=== PATIENT | female | born 1995 | race Caucasian/White ===

== ENCOUNTER → 2020-02-09 | Outpatient (CLI) | payer OTHER ==
[2020-02-09 12:30] VITALS: BP 135/72
--- NOTE | 2020-02-09 12:30 | ER [facility] ASSESSMENT REPORT ---
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 - Symptoms Subjective Fever([place] feverish): No Chills: No Muscule Aches: Yes Runny Nose: No Sore Throat: Yes Cough (New or worsening chronic cough): No Shortness of breath: No Nausea or Vomiting: No Headache: Yes Abdominal Pain: No Diarrhea(3 or more loose stools in last 24 hours): No - Do you have any of the following Chronic lung disease: Asthma or emphysema or COPD: No Cystic Fibrosis: No Diabetes: No High Blood Pressure: No Cardiovascular Disease: No Chronic Kidney Disease: No Chronic Liver Disease: No Chronic blood disorder like Sickle Cell Disease: Yes Weak immune system due to disease or medication: No Neurologic condition that limits movement: No Developmental delay - Moderate to Severe: No Recent (within past 2 weeks) or current : No Morbid Obesity (>100 pounds over ideal weight): No - Objective Temperature: 97.9 F Pulse Rate: 78 Respiratory Rate: 18 Blood Pressure: 135/72 O2 Sat by Pulse Oximetry: 97 Objective: Given above, testing performed: flu, strep, covid General - General Stated Complaint: sore throat Time Seen by Provider: 02/09/20 12:15 Mode of Arrival: Ambulatory - [facility] Notes: 24-year-old female presents to [facility] clinic for COVID-19 testing. 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 She also reports she was recently notified that a friend she was with approximately 3 weeks ago tested positive within the past 7 days. Patient reports onset of symptoms 02/08/2020. Currently experiencing muscle aches, sore throat, and headache. Denies any fever, chills, runny nose, cough, shortness of breath, nausea or vomiting, abdominal pain or diarrhea. - Related Data Allergies/Adverse Reactions: Sulfa (Sulfonamide Antibiotics) Allergy (Verified 01/14/15 12:38) Hives Past Medical History - General Information source: Patient - Social History Smoking Status: Never Smoker Family History: Reviewed & Not Pertinent - Past Medical History Cardiac Medical History: Reports: None Pulmonary Medical History: Reports: Hx Pneumonia EENT Medical History: Reports: None Neurological Medical History: Reports: None Endocrine Medical History: Reports: None Renal/ Medical History: Reports: None Malignancy Medical History: Reports: None GI Medical History: Reports: None Musculoskeletal Medical History: Reports None Skin Medical History: Reports None Psychiatric Medical History: Reports: None Traumatic Medical History: Reports: None Infectious Medical History: Reports: None Past Surgical History: Reports: Hx Cholecystectomy, Hx Orthopedic Surgery - R knee Physical Exam - General General appearance: Appears well, Alert In distress: None Notes: PHYSICAL EXAMINATION: GENERAL: Well-appearing and in no acute distress. HEAD: Atraumatic, normocephalic. EYES: sclera anicteric, conjunctiva are normal. ENT: nares patent. Moist mucous membranes. NECK: Normal range of motion, supple without lymphadenopathy. LUNGS: No increased work of breathing. Lung sounds CTAB and equal. No wheezes rales or rhonchi. HEART: Regular rate and rhythm without murmurs. ABDOMEN: Soft, nontender, normal bowel sounds, no guarding. EXTREMITIES: Normal range of motion, no pitting edema. No cyanosis. NEUROLOGICAL: A&O x 3. Normal speech. PSYCH: Normal mood, normal affect. SKIN: Warm, Dry, normal turgor, no rashes or lesions noted Patient Education/Counseling Counseling/Education: Patient presents with symptoms associated with possible Covid 19 infection. Patient does not have emergency worrying symptoms such as difficulty breathing, shortness of breath, chest pain, pressure, confusion or cyanosis. Patient appears suitable for discharge as vital signs are stable and patient is nontoxic in appearance. Good return precautions have been discussed with patient, patient verbalized understanding and is agreeable with discharge plan of care at this time. Guidance for worsening S/SX: As a person under investigation for Covid 19, the [place] department of Health and Human Services, division of public health advises you to adhere to the following guidance until your test results are reported to you. If your test result is positive, you will receive additional information from your provider and your local health department at that time. Remain at home until you are cleared by the health provider or public health authorities. Keep a log of visitors to your home, notify any visitors to your home of your isolation status. If you plan to move to a new address or leave the [facility], notify the local health department in your County. Call your doctor or seek care if you have an urgent medical need. Before seeking medical care, call ahead to get instructions from the provider before arriving at the medical office clinic or hospital. Notify them that you are being tested for the virus that causes Covid 19 so that arrangements can be made, as necessary, to prevent transmission to others in the healthcare setting. Next, notify the local health department in your county. If a medical emergency arises and you need to call 911, inform the first responders that you are being tested for the virus that causes Covid 19. Next, notify the local health department in your county. [facility] Discharge - Discharge Clinical Impression: Encounter for screening laboratory testing for COVID-19 virus Condition: Good Disposition: Home; Selfcare
[2020-02-09 13:05] LABS: A TYPE INFLUENZA AG NEGATIVE (NEGATIVE); B INFLUENZA AG NEGATIVE (NEGATIVE)
== END ==
LOC: RDC 11:46
PROVIDERS: ATTEND Registered Nurse
DX: Z20.828 Contact with and (suspected) exposure to other viral communicable diseases (principal); J02.9 Acute pharyngitis, unspecified; M79.10 Myalgia, unspecified site; R51 Headache; Z88.1 Allergy status to other antibiotic agents
CPT/HCPCS: 87070; 87880; 87635; 87077; 87804; C9803; 99201; 99211

== ENCOUNTER → 2020-04-03 | Outpatient (CLI) | payer OTHER ==
--- NOTE | 2020-04-03 10:22 | ER [facility] ASSESSMENT REPORT ---
Intake - In the Last 14 days Have you traveled outside [place]?: No Have you been in close contact with someone CONFIRMED: Yes Worked in Healthcare?: Yes - Symptoms Subjective Fever([place] feverish): Yes Chills: No Muscule Aches: Yes Runny Nose: No Sore Throat: Yes Cough (New or worsening chronic cough): No Shortness of breath: No Nausea or Vomiting: No Headache: Yes Abdominal Pain: No Diarrhea(3 or more loose stools in last 24 hours): No - Do you have any of the following Chronic lung disease: Asthma or emphysema or COPD: No Cystic Fibrosis: No Diabetes: No High Blood Pressure: No Cardiovascular Disease: No Chronic Kidney Disease: No Chronic Liver Disease: No Chronic blood disorder like Sickle Cell Disease: No Weak immune system due to disease or medication: No Neurologic condition that limits movement: Yes Developmental delay - Moderate to Severe: No Recent (within past 2 weeks) or current : No Morbid Obesity (>100 pounds over ideal weight): No - Objective Temperature: 98.7 F Pulse Rate: 91 Respiratory Rate: 18 Blood Pressure: 124/77 O2 Sat by Pulse Oximetry: 95 Objective: Given above, testing performed: If Testing Performed: Test Specimen Type Sent to General - General Information source: Patient Notes: Patient presents to the [facility] for screening for coronavirus. Patient's had symptoms for the past 2 days including fever, body aches, sore throat and headache. - Related Data Allergies/Adverse Reactions: Sulfa (Sulfonamide Antibiotics) Allergy (Verified 01/14/15 12:38) Hives Past Medical History - General Information source: Patient - Social History Smoking Status: Never Smoker Family History: Reviewed & Not Pertinent - Medical History Medical History: Other - Factor V Leiden Pulmonary Medical History: Reports: Hx Pneumonia Past Surgical History: Reports: Hx Cholecystectomy, Hx Orthopedic Surgery - R knee Physical Exam - Notes Notes: The patient was evaluated during the global Covid 19 pandemic, and that diagnosis was suspected/considered upon their initial presentation. Their evaluation, treatment and testing was consistent with current guidelines for patients who present with complaints or symptoms that may be related to Covid 19. Full physical exam could not be performed due to covid 19 isolation protocols. Constitutional: Nontoxic appearance, no acute distress Eyes: Nonicteric, extraocular movements intact, sclera clear ENT: Posterior pharynx erythematous, no tonsillar exudates Cardiovascular: Heart rate and rhythm regular, no JVD Respiratory: Breath sounds clear bilaterally, nonlabored breathing, no use of accessory muscles, no tachypnea Gastrointestinal: Abdomen not distended Muculoskeletal: Moves all extremities well Skin: Normal color Neuro: Awake alert oriented, normal speech Psych: Normal mood and affect Diagnostic Results Laboratory Results: Patient presents with symptoms worrisome for possible Covid 19. Patient does not have emergency worrying symptoms such as difficulty breathing, shortness of breath, chest pain, pressure, confusion or cyanosis. Patient appears suitable for discharge as they are not of an advanced age, do not have any chronic medical conditions such as diabetes, CAD, immune deficiency, chronic lung disease or chronic kidney disease. Patient's vital signs are stable and patient is nontoxic in appearance. Good return precautions have been discussed with patient, patient verbalized understanding and is agreeable with discharge plan of care at this time. Patient Education/Counseling Counseling/Education: Patient was provided with discharge information including: As a person under investigation for Covid 19, the [place] department of Health and Human Services, division of public health advises you to adhere to the following guidance until your test results are reported to you. If your test result is positive, you will receive additional information from your provider and your local health department at that time. Remain at home until you are cleared by the health provider or public health authorities. Keep a log of visitors to your home, notify any visitors to your home of your isolation status. If you plan to move to a new address or leave the formerly [facility], notify the local health department in your [facility]. Call your doctor or seek care if you have an urgent medical need. Before seeki ng medical care, call ahead to get instructions from the provider before arriving at the medical office clinic or hospital. Notify them that you are being tested for the virus that causes Covid 19 so that arrangements can be made, as necessary, to prevent transmission to others in the healthcare setting. Next, notify the local health department in your county. If a medical emergency arises and you need to call 911, inform the first responders that you are being tested for the virus that causes Covid 19. Next, notify the local health department in your county. [facility] Discharge - Discharge Condition: Stable Disposition: Home; Selfcare
[2020-04-03 10:29] VITALS: BP 124/77
[2020-04-03 11:25] LABS: A TYPE INFLUENZA AG NEGATIVE (NEGATIVE); B INFLUENZA AG NEGATIVE (NEGATIVE)
== END ==
LOC: RDC 10:04
PROVIDERS: ATTEND Nurse Practitioner Family
DX: J02.0 Streptococcal pharyngitis (principal); B95.0 Streptococcus, group A, as the cause of diseases classified elsewhere; Z20.828 Contact with and (suspected) exposure to other viral communicable diseases; R50.9 Fever, unspecified; D68.51 Activated protein C resistance; M79.10 Myalgia, unspecified site; R51.9 Headache, unspecified; Z88.1 Allergy status to other antibiotic agents
CPT/HCPCS: 87880; 87635; 87804; 99211 ×2; C9803

== ENCOUNTER → 2020-06-06 | Outpatient (CLI) | payer OTHER ==
[~2020-06-06] MED LIST: COVID-19 VACCINE (PFIZER)/PF 30 MCG/0.3 ML VIAL IM ONE; EPINEPHRINE INJ/PF 1 MG/1 ML AMPULE IM PRN
--- OUTSIDE RECORDS SUMMARY | 2020-06-06 14:31 | XMS REPORT ---
:1995 [facility] Address [facility] [address] [place] [address] Care Team Providers Name Role Phone Ary Trejo Primary Care Physician Unavailable Sander BAKER Attending Clinician Unavailable Kelsy Osorio CMA Unavailable Thanh Trejo DO Unavailable Allergies, Adverse Reactions, Alerts Allergy Allergy Status Severity Reaction(s) Onset Inactive Treating C omments Name Type Date Date Clinician Sulfa Drugs Sulfa Active Drugs Sulfacetami Sulfacetam Inactive de juan m *CHEMICALS* *CHEMICALS * Medications Ordered Filled Start Stop Current Ordering Indication Dosage Frequency Signature Comments Components Medication Medication Date Date Medication? Clinician (SIG) Name Name medroxyPROG 2020- No Ary Law 1{cc} medroxyP RO Site: [facility] 05-30 Neil GESTERone Delt oid, Acetate 150 00:00: 00:00 DO Acetate (R) MG/ML 00 :00 150 MG/ML Intramuscul Intramuscu ar lar Suspension Suspension 1 (one) cc Ordered: 1 Ary Trejo DO Start : 1 End : 1Administe red Comments: Site: Deltoid, (R) Nitrofurant 2019-05 No Josephine Tierney 1{Capsu Q0.5D Nitrofura n oin 07-08 Devon VÁZQUEZ le} toin Macrocrysta 00:00: Macrocryst l 100 MG 00 al 100 MG Oral Oral Capsule Capsule 1 (one) Capsule two times daily for 5 days Quantity: 10 {Capsule} Refills: 0 Ordered: 0 Josephine Osorio CMA Start : 0Active buPROPion 2019-05 Yes buPROPion HCl ER (XL) 1-19 HCl ER 300 MG Oral 00:00: (XL) 300 Tablet 00 MG Oral Extended Tablet Release 24 Extended Hour Release 24 Hour Quantity: 90 Refills: 0 Start : 0Active buPROPion 2019-05 No Ary A 1{Table QD buPROPio n HCl ER (XL) 1- Neil t} HCl ER 300 MG Oral 00:00: DO (XL) 300 Tablet 00 MG Oral Extended Tablet Release 24 Extended Hour Release 24 Hour 1 (one) Tablet daily for 90 days Quantity: 90 {Tablet} Refills: 1 Ordered: 0 Neil DO, Ary A Start : 0Active buPROPion 2019-05 No 1{Table QD buPROPion HCl ER (XL) 1- t_ER_24 HCl ER 300 MG Oral 00:00: HR} (XL) 300 Tablet 00 MG Oral Extended Tablet Release 24 Extended Hour Release 24 Hour 1 (one) daily (300 MG) Start : 0Active medroxyPROG 2019-05 2020- No Ary A 1{cc} medroxyP RO Site: [facility] 03-12 Neil GESTERone Delt oid, Acetate 150 00:00: 00:00 DO Acetate (R) MG/ML 00 :00 150 MG/ML Intramuscul Intramuscu ar lar Suspension Suspension 1 (one) cc Ordered: 0 Neil DO, Ary A Start : 0 End : 0Administe red Comments: Site: Deltoid, (R) buPROPion 2019-05 No Ary A 1{Table buPROPio n HCl ER (XL) 0- Neil t} HCl ER 150 MG Oral 00:00: DO (XL) 150 Tablet 00 MG Oral Extended Tablet Release 24 Extended Hour Release 24 Hour 1 (one) Tablet daily x 4 days then two daily in same dose for 30 days Quantity: 60 {Tablet} Refills: 0 Ordered: 0 Neil DO, Ary A Start : 0Active Nitrofurant 2020- No Josephine Tierney 1{Capsu Nitrofura n oin 01-18 Devon [employer]IS[employer] FILTERER le} toin Macrocrysta 00:00: 00:00 Macrocryst l 50 MG 00 :00 al 50 MG Oral Oral Capsule Capsule 1 (one) Capsule x 1 after intercours e for 30 days Quantity: 30 {Capsule} Refills: 0 Ordered: 19-Jan-2020 Devon CMA, Josephine C Start : 19-Jan-2020 End : 18-Feb-2020 Inactive Nitrofurant 2020-0 2020- No 1{Capsu Nitrofuran oin 01-18 le} toin Macrocrysta 00:00: 00:00 Macrocryst l 50 MG 00 :00 al 50 MG Oral Oral Capsule Capsule 1 (one) x 1 after intercours e (50 MG) Start : 19-Jan-2020 End : 18-Feb-2020 Inactive Depo-Cryptologic Technician 2020-0 No 1{Suspe Depo-Prove a 150 MG/ML 12-21 nsion} ra 150 Intramuscul 00:00: MG/ML ar 00 Intramuscu Suspension lar Suspension 1 (one) q 3 mo (150 MG/ML) Start : 22-Dec-2019 Active Mupirocin 2 2020-0 No 1{Ointm Mupirocin % External 8 ent} 2 % Ointment 00:00: External 00 Ointment 1 (one) bid (2 %) Start : 22-Dec-2019 Active medroxyPROG 2020-0 Yes medroxyPRO [facility] 8- GESTERone Acetate 150 00:00: Acetate MG/ML 00 150 MG/ML Intramuscul Intramuscu ar lar Suspension Suspension Quantity: 1 Refills: 0 Start : 22-Dec-2019 Active Depo-Cryptologic Technician 2020-0 No Burton C 1{Ashleigh Depo-Prov e a 150 MG/ML 8 Devon [employer] liter} ra 150 Intramuscul 00:00: MG/ML ar 00 Intramuscu Suspension lar Suspension 1 (one) Milliliter q 3 mo for 90 days Quantity: 1 {Millilite r} Refills: 3 Ordered: 22-Dec-2019 Devon WHISKEY FILTERER, Josephine C Start : 22-Dec-2019 Active Mupirocin 2 2020-0 No Josephine C 1{Appli Mupirocin % External 8 Devon [employer] cation} 2 % Ointment 00:00: External 00 Ointment 1 (one) Applicatio n bid for 30 days Quantity: 1 {Tube} Refills: 0 Ordered: 22-Dec-2019 Josephine Osorio CMA Start : 22-Dec-2019 Active Depo-Cryptologic Technician No Depo-Prove a 100 MG/ML ra 100 Injection MG/ML Solution Injection Solution as directed (100 MG/ML) Active Problems Condition Condition Condition Status Onset Resolution Last Treatin g Comments Name Details Category Date Date Treatment Clinician Date Problem No Known Condition Inactiv 2020-04-04 Devon, Impairments e 8-06 15:01:10 Josephine Tierney 00:00: 00 Multiple Multiple Problem Inactiv Neil, thyroid thyroid e Ary A nodules nodules Recurrent Recurrent Problem Inactiv Neil, tonsillitis tonsillitis e Ary A Dysuria Dysuria Problem Inactiv tate Osorio Anxiety Anxiety Problem Inactiv tate Osorio Asthma Asthma Problem Inactiv tate Osorio Factor 5 Factor 5 Problem Inactiv Sandy Osorio Leiden e Josephine Tierney mutation, mutation, heterozygou heterozygou s s Encounter Encounter Problem Inactiv Devon, for for e Josephine Tierney Papanicolao Papanicolao u smear for u smear for cervical cervical cancer cancer screening screening Depot Depot Problem Inactiv Devon, contracepti contracepti e Josephine Tierney on on Ingrowing Ingrowing Problem Inactiv Devon, nail nail e Josephine Tierney Overweight Overweight Problem Inactiv Devon, tate Tierney Encounter Encounter Problem Active Devon, for initial for initial Josephine Tierney prescriptio prescriptio n of n of injectable injectable contracepti contracepti ve ve Serum Serum Problem Inactiv Devon, calcium calcium e Josephine Tierney elevated elevated Hyperlipide Hyperlipide Problem Inactiv Devon, moises, mild moises, mild e Josephine Tierney Recurrent Recurrent Problem Inactiv Neil, urinary urinary e Ary A tract tract infection infection Adjustment Adjustment Problem Inactiv Devon, disorder disorder e Josephine Tierney with with depressed depressed mood mood BMI BMI Problem Inactiv Devon, 33.0-33.9,a 33.0-33.9,a e Josephine Tierney dult dult (Renamed (Renamed from Body from Body mass index mass index (BMI) of (BMI) of 33.0 to 33.0 to 33.9 in 33.9 in adult) adult) Obesity Obesity Problem Inactiv Devon, (BMI (BMI e Josephine Tierney 30.0-34.9) 30.0-34.9) Positive Positive Problem Inactiv Devon, depression depression e Josephine Tierney screening screening Right leg Right leg Problem Inactiv Devon, pain pain e Josephine Tierney Cryptic Cryptic Problem Active tonsil tonsil Recurrent Recurrent Problem Active acute acute tonsillitis tonsillitis Procedures Procedure Date / Time Performing Clinician Device Performed DEPO-MEDROXYPROGESTERONE ACETATE 2020-05-30 00:00:00 Rafael Trejocia A ([id number]) THER/PROPH/DIAG INJ SC/IM ([id number]) 2020-05-30 00:00:00 Ary Trejo DEPO-MEDROXYPROGESTERONE ACETATE 2020-03-12 00:00:00 Rafael Trejo atricia A ([id number]) THER/PROPH/DIAG INJ SC/IM ([id number]) 2020-03-12 00:00:00 Ary Trejo Pap Smear 2020-02-27 00:00:00 Josephine Osorio Cholecystectomy Jospehine Osorio History of [place] tooth extraction History of Gallbladder surgery History of Knee surgery History of Cyst excision History of Esophagogastroduodenoscopy History of Colonoscopy Results This patient has no known results. Assessments Condition Name Status Diagnosis Date Treating Clinici an Recurrent acute tonsillitis Active Cryptic tonsil Active Advance Directives Directive Decision Effective Date Termination Date Comments Advanced Directive Scanned to Yes 2020-01-07 00:00:00 Chart - Effective on 01/07/2020. Expiration date unspecified Encounters Start End Encounter Admission Attending Care Care Encounter ID Date/Time Date/Time Type Type Clinicians Facility Department 2020-05-30 2020-05-30 Nurse Visit Adore Avitia [id number] 08:22:37 08:25:38 [facility] 2020-05-07 2020-05-07 Nurse Visit Adore Avitia [id number] 08:15:21 08:20:35 [facility] 2020-04-16 2020-04-16 Appointment JOANNE Boucher [id number] 15:00:00 16:15:59 ; Sukhi Boucher MD 2020-04-04 2020-04-04 Virtual [facility] [id number] 15:00:16 15:22:39 Visit [facility] 2020-03-12 2020-03-12 Nurse Visit Crystal Crystal [id number] 07:30:48 07:52:48 [facility] 2020-03-04 2020-03-04 Historical Crystal Crystal [id number] 15:40:55 15:42:22 Summary [facility] 2020-02-27 2020-02-27 Office Crystal Crystal [id number] 08:19:13 09:16:57 Visit [facility] 2020-02-01 2020-02-01 Historical Crystal Crystal [id number] 14:47:48 14:49:46 Summary [facility] 2020-02-01 2020-02-01 Lab Visit Crystal Crystal [id number] 08:00:00 10:38:15 [facility] 2020-01-19 2020-01-19 Virtual Crystal Crystal [id number] 07:52:24 08:17:48 Visit [facility] 2020-01-11 2020-01-11 Lab Visit Crystal Crystal [id number] 08:25:00 09:38:26 [facility] 2019-12-25 2019-12-25 Annotation/ Crystal Crystal [id number] 12:19:51 12:24:54 Addendum [facility] 2019-12-22 2019-12-22 Virtual Crystal Crystal [id number] 11:37:55 12:14:16 Visit [facility] Family History Family Member Diagnosis Comments Start Date Stop Date Unspecified Family history of lung cancer Family History Unspecified Family history of Family History hypercholesterolemia Unspecified Family history of Factor 5 Family History Leiden mutation, heterozygous Unspecified Family history of pancreatic Family History cancer Unspecified Father In stable health. Unspecified Maternal Grandfather Diabetes. Heart Disease. Hyperlipidemia. Hypertension. Pancreatic Cancer. . Unspecified Maternal Grandmother . Unspecified Mother In stable health. Unspecified Paternal Grandfather In stable health. Unspecified Paternal Grandmother In stable health. Unspecified Family history of hypertension Family History Payers Payer Name Policy Type Policy Number Effective Date Expiration D ate Select OT Plan of Treatment Planned Activity Planned Date Details Comments Future Scheduled Test [code = ] Future Scheduled Test [code = ] Future Scheduled Test [code = ] Future Scheduled Test [code = ] Future Scheduled Test [code = ] Future Scheduled Test [code = ] Future Scheduled Test [code = ] Future Scheduled Test [code = ] Future Scheduled Test [code = ] Future Scheduled Test [code = ] Future Scheduled Test [code = ] Future Scheduled Test [code = ] Future Scheduled Test [code = ] Future Scheduled Test [code = ] Future Scheduled Test [code = ] Future Scheduled Test [code = ] Future Scheduled Test [code = ] Future Scheduled Test [code = ] Future Scheduled Test [code = ] Future Scheduled Test [code = ] Future Scheduled Test [code = ] Future Scheduled Test [code = ] Future Scheduled Test [code = ] Future Scheduled Test [code = ] Social History Social Habit Start Date Stop Date Comments Caffeine use: Current Work/Study Status: Drug Use: Exercise History: Highest Education Level Attained: HIV risk factors: Housing: Marital status: Primary Control Method: Risk Factors For STD: Sexual Preference: Tobacco Use: Tobacco/Smoke Exposure: Alcohol Use: Smoking Status Start Date Stop Date Never smoked tobacco (finding) Vital Signs Vital Name Observation Time Observation Value Comments O2 SAT 2020-02-27 08:38:25 98 % Room air Systolic blood pressure 2020-02-27 08:38:25 122 mm[Hg] Poonam ent Position: Sitting; Cuff Location: Left A rm; Cuff Size: Stand te Diastolic blood pressure 2020-02-27 08:38:25 66 mm[Hg] Pat ient Position: Sitting; Cuff Location: Left A rm; Cuff Size: Stand te Weight 2020-02-27 08:38:25 180 [lb_av] Body height 2020-02-27 08:38:25 61.5 [in_us] Body mass index (BMI) 2020-02-27 08:38:25 33.46 kg/m2 [Ratio] Body temperature 2020-02-27 08:38:25 97.8 [degF] Heart Rate 2020-02-27 08:38:25 80 /min Pattern: Reg ular Weight 2019-12-22 11:44:02 178 [lb_av] Body height 2019-12-22 11:44:02 62 [in_us] Body mass index (BMI) 2019-12-22 11:44:02 32.56 kg/m2 [Ratio] Systolic blood pressure 2020-04-16 15:16:00 122 mm[Hg] Diastolic blood pressure 2020-04-16 15:16:00 73 mm[Hg] Body height 2020-04-16 15:16:00 62 [in_us] Weight 2020-04-16 15:16:00 181 [lb_av] Body mass index (BMI) 2020-04-16 15:16:00 33.11 kg/m2 [Ratio] Heart Rate 2020-04-16 15:16:00 86 /min Hospital Discharge Instructions NameDatesDetailsNo Instruction Information AvailableNameDatesDetailsNo Instruction Information AvailableNameDatesDetailsInstructions not documented NameDatesDetailsNo Instruction Information AvailableNameDatesDetailsNo Instruction Information AvailableNameDatesDetailsNo Instruction Information AvailableNameDatesDetailsFollow Up for Depression Indication: Positive depression screening Start: 27-Feb-2020 Instruction Type: Provider Instructions for Treatment How to Access Health Information Online using[employer] Portal and [employer] Indication: BMI 33.0-33.9,adult (Renamed from Body mass index (BMI) of 33.0 to 33.9 in adult) Start: 27-Feb-2020 Instruction Type: Patient EducationNameDatesDetailsNo Instruction Information AvailableNameDatesDetailsNo Instruction Information AvailableNameDatesDetailsHigh Cholesterol Indication: Hyperlipidemia, mild Start: 19-Jan-2020 Instruction Type: Patient Education NameDatesDetailsNo Instruction Information AvailableNameDatesDetailsNo Instruction Information [id number] Tips for Achieving Your Healthy Weight Indication: Overweight Start: 22-Dec-2019 Instruction Type: Patient Education
== END ==
LOC: EMPHEALTH 09:22
PROVIDERS: ATTEND Internal Medicine
DX: Z23 Encounter for immunization (principal)
CPT/HCPCS: 91300